=== PATIENT | female | born 1955 | race Caucasian/White ===

== ENCOUNTER 2021-02-09 07:50 | Day surgery (SDC) | payer BC, SELFPAY ==
[2021-02-03 14:46] VITALS: BMI 26.4
--- NOTE | 2021-02-05 07:52 | MHC.SHP ---
Pre-Procedural Eval Section A The patient is an INPATIENT: No The History & Physical has been completed within 30 days and I have reviewed it.: Yes Section B Chief Complaint: Cataract Left Eye Allergies: Allergies Allergy/AdvReac Type Severity Reaction Status Date / Time clindamycin [CLINDAMYCIN] Allergy Severe SEVERE Verified 02/03/21 14:55 ABDOMINAL PAIN amoxicillin [AMOXICILLIN] Allergy Intermediate RASH Verified 02/03/21 14:55 hydrochlorothiazide Allergy Intermediate RASH Verified 02/03/21 14:55 [HYDROCHLOROTHIAZIDE] lisinopril [LISINOPRIL] AdvReac Intermediate COUGH Verified 02/03/21 14:55 omeprazole [OMEPRAZOLE] AdvReac Intermediate GI UPSET Verified 02/03/21 14:55 Plan Diagnosis/Plan: Unchanged I have reviewed the history and physical and performed a pertinent physical examination on my patient. No changes have occurred unless specified.
--- NOTE | 2021-02-06 08:37 | P.CONAN_ITS ---
Documented by User: Nandini Barker 02/06/21 08:38 HPI - Anesthesia Eval Consult details Narrative: 65yo F for Left Cataract Extraction IOL Insertion R eye 2019 with MAC: Prop 30 PMFSH Past Medical History Medical History Arthritis Elevated cholesterol GERD (gastroesophageal reflux disease) HTN (hypertension) Legally blind Personal history of COVID-19 Salivary duct obstruction Surgical History Surgical History H/O colonoscopy History of detached retina repair History of right cataract surgery Hx of hysterectomy Hx of tonsillectomy Social History Social History Are you a primary patient care coordinator to a significant other at home: No Do you presently have visiting nurse or other home services: No Smoking Status: Former smoker Tobacco Type: Cigarette Smoking Quit Date: 1990 Use of substances other than those prescribed or required for medical reasons: No Have you been hit, kicked, punched, or otherwise hurt by someone within the past year? If so, by whom?: No Advance Directives Information Provided: No Recently lost weight without trying: No Meds Allergies Allergy/AdvReac Type Severity Reaction Status Date / Time clindamycin [CLINDAMYCIN] Allergy Severe SEVERE Verified 02/03/21 14:55 ABDOMINAL PAIN amoxicillin [AMOXICILLIN] Allergy Intermediate RASH Verified 02/03/21 14:55 hydrochlorothiazide Allergy Intermediate RASH Verified 02/03/21 14:55 [HYDROCHLOROTHIAZIDE] lisinopril [LISINOPRIL] AdvReac Intermediate COUGH Verified 02/03/21 14:55 omeprazole [OMEPRAZOLE] AdvReac Intermediate GI UPSET Verified 02/03/21 14:55 Home Medications Medication Instructions Recorded Confirmed Last Taken Type famotidine [Pepcid] 20 mg PO DAILY PRN 02/03/21 02/03/21 Unknown History losartan 50 mg PO DAILY 02/03/21 02/03/21 Unknown History multivitamin 1 tab PO DAILY 02/03/21 02/03/21 Unknown History Exam Exam Date and Time: February 06, 2021 0837 Height,Weight and Vital Signs: Height 5 ft Weight 61.235 kg Assessment and Plan Assessment Anesthesia Assessment: Chart Reviewed Documented by User: Yasmin Salomon 02/09/21 09:06 [facility] Past Medical History Medical History Arthritis Elevated cholesterol GERD (gastroesophageal reflux disease) HTN (hypertension) Legally blind Personal history of COVID-19 Salivary duct obstruction Family History Family history of problems with anesthesia: No Surgical History Surgical History H/O colonoscopy History of detached retina repair History of right cataract surgery Hx of hysterectomy Hx of tonsillectomy History of Problems with Anesthesia: No Social History Social History Are you a primary patient care coordinator to a significant other at home: No Do you presently have visiting nurse or other home services: No Smoking Status: Former smoker Tobacco Type: Cigarette Smoking Quit Date: 1990 Use of substances other than those prescribed or required for medical reasons: No Have you been hit, kicked, punched, or otherwise hurt by someone within the past year? If so, by whom?: No Advance Directives Information Provided: No Recently lost weight without trying: No Meds Allergies Allergy/AdvReac Type Severity Reaction Status Date / Time clindamycin [CLINDAMYCIN] Allergy Severe SEVERE Verified 02/03/21 14:55 ABDOMINAL PAIN amoxicillin [AMOXICILLIN] Allergy Intermediate RASH Verified 02/03/21 14:55 hydrochlorothiazide Allergy Intermediate RASH Verified 02/03/21 14:55 [HYDROCHLOROTHIAZIDE] lisinopril [LISINOPRIL] AdvReac Intermediate COUGH Verified 02/03/21 14:55 omeprazole [OMEPRAZOLE] AdvReac Intermediate GI UPSET Verified 02/03/21 14:55 Home Medications Medication Instructions Recorded Confirmed Last Taken Type famotidine [Pepcid] 20 mg PO DAILY PRN 02/03/21 02/03/21 Unknown History losartan 50 mg PO DAILY 02/03/21 02/03/21 Unknown History multivitamin 1 tab PO DAILY 02/03/21 02/03/21 Unknown History Exam Height,Weight and Vital Signs: Vital Signs Temp Pulse Resp BP Pulse Ox 02/09/21 08:53 97.9 F 79 18 164/84 H 99 Airway Mallampati Class: III (Small mouth) TM Dist: >3cm Neck ROM: Full Loose/Missing/Broken Teeth: Yes Heart: RRR Lungs: CTAB Assessment and Plan Assessment Anesthesia Assessment: Anesthesia Plan Discussed and Chart Reviewed Final Anesthetic Review NPO: Yes ASA Class: II Final Preanesthetic Review: No Changes in Pt Med Stat, Meds/Allgs Chart Reviewed, Consent Obtained/Reviewed and Anes Risks/Benef Reviewed Patient Risk: Low Procedure Risk: Low Assessment/Block/Sedation in SS: Assess/Block/Sedation-SS Anesthetic Plan Anesthetic Plan: MAC: Disposition: Standard PACU
[2021-02-09 08:53] VITALS: BP 164/84; PULSE 79; RESP 18; TEMP 36.6; O2SAT 99
[2021-02-09] MEDS: Tetracaine HCl/PF 0.5% Oph Sol 4 ML DROPS 1 DROP EYE-LEFT (08:56)
[2021-02-09] MEDS: Tropicamide 1 % Ophth Sol 3 ML BTL 1 DROP EYE-LEFT ×3 (09:00→09:15)
[2021-02-09] MEDS: Phenylephrine HCL 2.5% Oph SoL 2 ML BOTTLE 1 DROP EYE-LEFT ×3 (09:06→09:18)
[2021-02-09] MEDS: Lactated Ringers 500 ML 50 ML IV (09:13)
--- NOTE | 2021-02-09 10:06 | HO.PNOPHT ---
Ophthalmology Procedure Procedure Date of Service: 02/09/21 Ophthalmology Viscoelastic: Healmelvina Duet Dual Pack Pro Ophthalmology Lenses: TECBEVERLY [id number] (16) Procedure Notes: PREOPERATIVE DIAGNOSIS: Decreased visual acuity left eye secondary to cataract POSTOPERATIVE DIAGNOSIS: Same PROCEDURE: Left cataract extraction with intraocular lens insertion SURGEON: Rodney Ambrocio M.D. ANESTHESIA: Topical/MAC ESTIMATED BLOOD LOSS: None COMPLICATIONS: None After obtaining informed consent, the patient was brought to the operation room suite and placed in the supine position. After adequate sedation per anesthesia, topical drops of Tetracaine were given to the left eye. The eye was then prepped and draped in the usual sterile fashion. The operating room microscope was then positioned over the operative eye and a lid speculum placed. A paracentesis was created. Viscoelastic was then instilled into the anterior chamber. A three plane incision was then created temporally, utilizing a 2.85 mm keratome. Capsulotomy forceps were then utilized to create a circular tear capsulotomy. Hydrodissection and hydrodelineation were carried out until adequate mobilization of the nucleus occurred. Phacoemulsification was then utilized to remove the dense central nucleus followed by removal of the cortical material utilizing the automated aspiration irrigation unit. Viscoat elastic was instilled into the posterior capsular bag followed by placement of a posterior chamber intraocular lens without difficulty. The residual Viscoat elastic was then removed utilizing the automated IA machine. The wound was check and found to be watertight. The patient tolerated the procedure well and the lid speculum was removed. Intracameral injection of Vigamox 0.1 mL followed by a subtenon injection of Kenalog-40 0.2 mL were administered. The patient will be seen in the a.m.
[2021-02-09 10:07] VITALS: BP 122/77; PULSE 80; RESP 15; TEMP 36.9; O2SAT 98
== END 2021-02-09 10:27 | disposition home or self-care (01) ==
PROVIDERS: PCP Internal Medicine; Visit Provider Ophthalmology
PROC: (CPT 66985; principal; 2021-02-09 10:00)
DX: H25.12 Age-related nuclear cataract, left eye (principal); H54.7 Unspecified visual loss; Z83.511 Family history of glaucoma; I10 Essential (primary) hypertension; Z86.16 Personal history of COVID-19; Z87.891 Personal history of nicotine dependence; Z79.899 Other long term (current) drug therapy; Z88.0 Allergy status to penicillin; Z88.8 Allergy status to other drugs, medicaments and biological substances
CPT/HCPCS: 66984; J2250; J3300; V2632

== ENCOUNTER 2021-03-02 12:32 | Outpatient (REF) | payer BC, SELFPAY ==
[2021-03-02 12:45] VITALS: BP 153/80; PULSE 88; RESP 16; TEMP 36.9; O2SAT 98
[2021-03-02 14:20] VITALS: BMI 25.7
== END 2021-03-02 12:33 | disposition home or self-care (01) ==
LOC: HO.MS 12:32
PROVIDERS: PCP Internal Medicine; Visit Provider Ophthalmology
PROC: (CPT 66821; principal; 2021-03-02 13:50)
DX: H26.491 Other secondary cataract, right eye (principal); I10 Essential (primary) hypertension; Z83.511 Family history of glaucoma; H54.8 Legal blindness, as defined in USA; Z88.0 Allergy status to penicillin; Z88.8 Allergy status to other drugs, medicaments and biological substances; Z87.891 Personal history of nicotine dependence
CPT/HCPCS: 66821